=== PATIENT | male | born 1945 | race Caucasian/White ===

== ENCOUNTER 2017-11-02 17:15 | Inpatient (IN) | payer OTHER, MEDICARE ==
[2017-11-02] MEDS ORDERED: IPRATROPIUM-ALBUTEROL 3 ML NEB INHALATION STA (17:20)
[2017-11-02] MEDS ORDERED: methylPREDNISolone SOD SUCCI 125 MG/2 ML VIAL IV STA (17:20)
[2017-11-02] MEDS ORDERED: ALBUTEROL NEBULIZED 2.5 MG/3 ML INHALATION STA (17:20)
[2017-11-02 17:55] LABS: Basophils # (A) 0.1 k/uL (0-0.2); Basophils % (A) 2 %; Eosinophils % (A) 0 %; HCT 48.8 % (39.0-53.0); HGB 14.4 gm/dL (13.0-17.5); Hypochromasia Moderate; Lymphocytes # (A) 0.6 k/uL (1.0-4.8); Lymphocytes % (A) 8 %; MCH 30.5 pg (25.0-35.0); MCHC 29.5 g/dL (31.0-37.0); MCV 103.3 fL (80.0-100.0); Macrocytosis Slight; Mean Platelet Volume 7.1; Monocytes # (A) 0.4 k/uL (0-1.0); Monocytes % (A) 6 %; Neutrophils # (A) 6.2 k/uL (1.3-7.7); Neutrophils % (A) 82 %; Platelet Count 186 k/uL (150-450); RBC 4.72 m/uL (4.30-5.90); RDW 13.3 % (11.5-15.5); WBC 7.5 k/uL (3.8-10.6)
[2017-11-02 18:04] LABS: ALT 49 U/L (21-72); AST 64 U/L (17-59); Albumin 4.2 g/dL (3.5-5.0); Alkaline Phosphatase 155 U/L (38-126); Blood Urea Nitrogen 21 mg/dL (9-20); Calcium 9.4 mg/dL (8.4-10.2); Chloride 90 mmol/L (98-107); Glucose 159 mg/dL (74-99); Potassium 5.6 mmol/L (3.5-5.1); Sodium 143 mmol/L (137-145); Total Bilirubin 0.6 mg/dL (0.2-1.3); Total Protein 8.5 g/dL (6.3-8.2)
[2017-11-02 18:10] LABS: Anion Gap 8 mmol/L
[2017-11-02 18:15] LABS: Creatine Kinase MB 1.7 ng/mL (0.0-2.4); Partial Thromboplastin Time 23.2 sec (22.0-30.0); Prothrombin Time 10.1 sec (9.0-12.0); Troponin I 0.028 ng/mL (0.000-0.034)
[2017-11-02 18:16] LABS: Carbon Dioxide 45 mmol/L (22-30)
[2017-11-02 18:20] LABS: D-Dimer 1.37 mg/L FEU (<0.60)
--- NOTE | 2017-11-02 18:23 | XR ---
EXAMINATION TYPE: XR chest 1V DATE OF EXAM: 11/02/2017 COMPARISON: 06/04/2017 and 12/29/2014 HISTORY: 72-year-old male difficulty breathing, shortness of breath TECHNIQUE: Single frontal view of the chest is obtained. FINDINGS: Heart normal size. Hyperinflation with relative upper lung lucencies. Mild diffuse interstitial promi nence. There is some patchy right basilar density. Suspect external artifact rejecting at the right u pper lung. This area can be reassessed at follow-up. No significant pleural effusion seen. Limited po rtable leftward rotated exam. IMPRESSION: 1. COPD. 2. Patchy right basilar atelectasis or developing infiltrate. 3. Nodular density right upper lobe suspected external artifact. This can be reassessed at follow-up.
[2017-11-02 18:26] LABS: ABG Base Excess 18.9 mmol/L; ABG Oxygen Saturation 87.2 % (94-97); ABG PH 7.25 (7.35-7.45); ABG PO2 56 mmHg (83-108); ABG TCO2 49 mmol/L (19-24)
[2017-11-02 18:28] LABS: ABG HCO3 46 mmol/L (21-25); ABG PCO2 105 mmHg (35-45)
--- NOTE | 2017-11-02 18:31 | ED ---
SOB HPI - General Chief Complaint: Shortness of Breath Stated Complaint: MARIA L Time Seen by Provider: 11/02/17 17:20 Source: EMS Mode of arrival: EMS Limitations: no limitations - History of Present Illness Initial Comments: 72 years old male with a history of COPD by ambulance at his severe shortness of breath he is not able to even talk and he was breathing at 32 breaths per minute he was only able to nod to any questions and I see him he was using his accessory muscles and feels like he was falling asleep at that time we started on a BiPAP. Review of system was obtained from his son who also took him to the doctor's office yesterday. They [about some steroids for his COPD, his son said he also had a chest tightness and chest pain earlier in the day. Later his arrived and she said he felt cold shortly before that he had a very short span of asystole one of the RNs gave him a chest compressions and now for about a minute and then they noticed return of the pulse. The concern that he is a full code - Related Data Home Medications Medication Instructions Recorded Confirmed Benazepril [Lotensin] 5 mg PO DAILY 10/16/14 11/06/17 Metoprolol Tartrate [Lopressor] 50 mg PO BID 10/16/14 11/06/17 Nitroglycerin 0.4MG/Hr Patch 0.4 mg TRANSDERM DAILY 10/16/14 11/06/17 [Nitro-Dur 0.4MG/Hr Patch] Theophylline Anhydrous [Theochron] 200 mg PO BID 10/16/14 11/06/17 Simvastatin [Zocor] 20 mg PO HS 10/18/14 11/06/17 Omeprazole [PriLOSEC] 20 mg PO DAILY 11/10/14 11/06/17 Levothyroxine Sodium [Synthroid] 25 mcg PO DAILY 02/13/16 11/06/17 Albuterol Nebulized [Ventolin 2.5 mg INHALATION RT-Q4H PRN 11/02/17 11/06/17 Nebulized] Aspirin EC [Ecotrin Low Dose] 81 mg PO DAILY 11/02/17 11/06/17 Budesonide/Formoterol Fumarate 2 puff INHALATION RT-BID 11/02/17 11/06/17 [Symbicort 160-4.5 Mcg Inhaler] Cholecalciferol [Vitamin D3] 1,000 unit PO DAILY 11/02/17 11/06/17 Furosemide [Lasix] 20 mg PO AC-BID 11/02/17 11/06/17 Ipratropium Nebulized [Atrovent 0.5 mg INHALATION RT-Q4H PRN 11/02/17 11/06/17 Nebulized] Multivitamins, Thera [Multivitamin 1 tab PO DAILY 11/02/17 11/06/17 (formulary)] Previous Rx's Medication Instructions Recorded Phenytoin Sodium Extended 200 mg PO BID #1 cap 10/23/14 [Dilantin] Allergies Allergy/AdvReac Type Severity Reaction Status Date / Time No Known Allergies Allergy Verified 11/06/17 13:28 Review of Systems ROS Statement: Those systems with pertinent positive or pertinent negative responses have been documented in the HPI. ROS Other: All systems not noted in ROS Statement are negative. Past Medical History Past Medical History: Chest Pain / Angina, Heart Failure, COPD, Deep Vein Thrombosis (DVT), Hyperlipidemia, Hypertension, Myocardial Infarction (CT), Seizure Disorder Additional Past Medical History / Comment(s): CT 2010, SEIZURE EVERYTIME HE COUGHS (HEAVY IN 2011) Last Myocardial Infarction Date:: 2010 History of Any Multi-Drug Resistant Organisms: None Reported Past Surgical History: Heart Catheterization With Stent Additional Past Surgical History / Comment(s): 8 STENTS Past Anesthesia/Blood Transfusion Reactions: No Reported Reaction Additional Past Anesthesia/Blood Transfusion Reaction / Comment(s): NEVER HAD ONE Date of Last Stent Placement:: 2010 Past Psychological History: No Psychological Hx Reported Smoking Status: Former smoker Past Alcohol Use History: None Reported Past Drug Use History: None Reported - Past Family History Mother Family Medical History: Cancer Additional Family Medical History / Comment(s): BONE CANCER Father Family Medical History: No Reported History General Exam Limitations: no limitations Course Vital Signs 11/02/17 11/02/17 11/02/17 17:20 17:28 18:20 Temperature 98.2 F Pulse Rate 102 H 108 H Respiratory 36 H 30 H Rate Blood Pressure 176/86 O2 Sat by Pulse 85 L Oximetry 11/02/17 11/02/17 11/02/17 18:40 19:00 19:19 Temperature Pulse Rate 108 H 102 H 96 Respiratory 22 Rate Blood Pressure 141/71 O2 Sat by Pulse 96 Oximetry 0211/02/17 11/02/17 19:24 19:34 19:44 Temperature Pulse Rate 92 94 92 Respiratory 18 18 18 Rate Blood Pressure 115/58 81/47 68/42 O2 Sat by Pulse 100 98 98 Oximetry 11/02/17 11/02/17 11/02/17 19:46 19:52 19:57 Temperature Pulse Rate 90 88 88 Respiratory 18 18 18 Rate Blood Pressure 70/48 81/50 104/55 O2 Sat by Pulse 98 98 99 Oximetry 11/02/17 11/02/17 11/02/17 20:01 20:02 20:18 Temperature Pulse Rate 94 86 86 Respiratory 18 18 18 Rate Blood Pressure 77/47 96/55 105/60 O2 Sat by Pulse 98 100 99 Oximetry 11/02/17 11/02/17 11/02/17 20:25 20:35 20:45 Temperature Pulse Rate 84 92 93 Respiratory 18 18 22 Rate Blood Pressure 112/65 116/64 93/58 O2 Sat by Pulse 100 98 99 Oximetry 11/02/17 11/02/17 11/02/17 20:55 21:02 21:07 Temperature Pulse Rate 88 88 88 Respiratory 22 22 22 Rate Blood Pressure 93/61 113/63 112/65 O2 Sat by Pulse 98 97 96 Oximetry 11/02/17 11/02/17 11/02/17 21:12 21:22 21:27 Temperature Pulse Rate 90 88 88 Respiratory 22 22 22 Rate Blood Pressure 114/67 111/65 116/69 O2 Sat by Pulse 99 95 99 Oximetry 11/02/17 11/02/17 11/02/17 21:32 21:42 21:52 Temperature Pulse Rate 81 90 91 Respiratory 22 22 22 Rate Blood Pressure 174/76 118/60 111/63 O2 Sat by Pulse 95 98 99 Oximetry 11/02/17 11/02/17 11/02/17 22:02 22:11 22:17 Temperature Pulse Rate 96 104 H 92 Respiratory 18 22 22 Rate Blood Pressure 116/69 121/105 111/60 O2 Sat by Pulse 97 94 L 99 Oximetry 11/02/17 11/02/17 11/02/17 22:27 22:37 22:47 Temperature Pulse Rate 92 92 90 Respiratory 22 22 22 Rate Blood Pressure 116/61 119/65 115/65 O2 Sat by Pulse 100 98 99 Oximetry 11/02/17 11/02/1718 22:57 23:22 23:32 Temperature Pulse Rate 90 92 99 Respiratory 22 22 22 Rate Blood Pressure 104/58 109/64 113/64 O2 Sat by Pulse 98 98 99 Oximetry 11/02/17 11/02/17 11/02/17 23:42 23:47 23:57 Temperature Pulse Rate 94 94 92 Respiratory 22 22 22 Rate Blood Pressure 90/51 87/54 91/54 O2 Sat by Pulse 98 97 97 Oximetry 11/03/17 11/03/17 11/03/17 00:02 00:12 00:22 Temperature Pulse Rate 92 90 92 Respiratory 22 22 22 Rate Blood Pressure 95/55 111/66 115/67 O2 Sat by Pulse 97 99 99 Oximetry 11/03/17 11/03/17 11/03/17 00:53 01:38 02:09 Temperature Pulse Rate 92 92 93 Respiratory 22 22 22 Rate Blood Pressure 103/65 91/56 102/65 O2 Sat by Pulse 100 98 98 Oximetry 11/03/17 11/03/17 11/03/17 02:23 02:53 03:23 Temperature Pulse Rate 90 94 92 Respiratory 22 22 22 Rate Blood Pressure 96/61 96/51 103/63 O2 Sat by Pulse 98 98 98 Oximetry 11/03/17 11/03/17 11/03/17 03:53 04:23 04:53 Temperature Pulse Rate 90 88 94 Respiratory 22 22 22 Rate Blood Pressure 101/64 111/75 117/75 O2 Sat by Pulse 98 95 99 Oximetry 11/03/17 11/03/17 11/03/17 05:23 05:42 06:43 Temperature 97.9 F Pulse Rate 95 94 90 Respiratory 22 22 22 Rate Blood Pressure 118/72 105/63 117/73 O2 Sat by Pulse 100 99 100 Oximetry 11/03/17 11/03/17 11/03/17 07:55 08:50 09:00 Temperature Pulse Rate 89 98 96 Respiratory 16 16 Rate Blood Pressure 117/72 122/73 O2 Sat by Pulse 99 100 Oximetry 11/03/17 11/03/17 11/03/17 10:00 11:00 12:00 Temperature Pulse Rate 92 95 94 Respiratory 16 18 16 Rate Blood Pressure 111/66 110/74 114/65 O2 Sat by Pulse 99 98 98 Oximetry 11/03/17 11/03/17 11/03/17 12:01 12:13 14:02 Temperature Pulse Rate 94 97 109 H Respiratory 16 Rate Blood Pressure 165/77 O2 Sat by Pulse 100 Oximetry 11/03/17 14:24 Temperature 98.7 F Pulse Rate 118 H Respiratory 22 Rate Blood Pressure 143/81 O2 Sat by Pulse 98 Oximetry EKG is a sinus tachycardia with occasional premature ventricular complexes OR interval is 192 with ventricular rate is 1 of 4 QRS duration is 116 QT/QTc is 334/439 review of this EKG reveals T-wave inversion in lead [address] Bailey he agrees with the ICU admission and Dr. Ruiz pcp, on arrival patient was started on a BiPAP, he felt a BiPAP in spite of being on a BiPAP half an hour he is here today was 105 is not intubated confirmation was done with the bilateral auscultation and CO2 detector get better Procedures - Intubation Time Out Performed: Yes Sedative: Etomidate Paralytic: Succinylcholine Laryngoscope: fiber optic video scope Assist Device Used: fiber optic device ET Tube Size: 8 ET Tube Uncuffed: Yes Tube Secured Depth (cm): 22 Tube Secured Location: lips Tube Placement Confirmation: visualized tube passing through cords Patient Tolerated Procedure: well Intubation Complications: none Medical Decision Making - Lab Data Result diagrams: 11/03/17 05:23 11/03/17 05:23 Lab Results 11/02/17 11/02/17 11/02/17 Range/Units 17:34 17:34 17:34 WBC 7.5 (3.8-10.6) k/uL RBC 4.72 (4.30-5.90) m/uL Hgb 14.4 (13.0-17.5) gm/dL Hct 48.8 (39.0-53.0) % MCV 103.3 H (80.0-100.0) fL MCH 30.5 (25.0-35.0) pg MCHC 29.5 L (31.0-37.0) g/dL RDW 13.3 (11.5-15.5) % Plt Count 186 (150-450) k/uL Neutrophils % 82 % Lymphocytes % 8 % Monocytes % 6 % Eosinophils % 0 % Basophils % 2 % Neutrophils # 6.2 (1.3-7.7) k/uL Lymphocytes # 0.6 L (1.0-4.8) k/uL Monocytes # 0.4 (0-1.0) k/uL Eosinophils # 0.0 (0-0.7) k/uL Basophils # 0.1 (0-0.2) k/uL Hypochromasia Moderate Macrocytosis Slight PT (9.0-12.0) sec INR (<1.2) APTT (22.0-30.0) sec D-Dimer (<0.60) mg/L FEU Sample Site ABG pH (7.35-7.45) ABG pCO2 (35-45) mmHg ABG pO2 (83-108) mmHg ABG HCO3 (21-25) mmol/L ABG Total CO2 (19-24) mmol/L ABG O2 Saturation (94-97) % ABG Base Excess mmol/L Baltazar Test FiO2 % Sodium 143 (137-145) mmol/L Potassium 5.6 H (3.5-5.1) mmol/L Chloride 90 L (98-107) mmol/L Carbon Dioxide 45 H* (22-30) mmol/L Anion Gap 8 mmol/L BUN 21 H (9-20) mg/dL Creatinine 0.70 (0.66-1.25) mg/dL Est GFR (MDRD) Af Amer >60 (>60 ml/min/1.73 sqM) Est GFR (MDRD) Non-Af >60 (>60 ml/min/1.73 sqM) Glucose 159 H (74-99) mg/dL Calcium 9.4 (8.4-10.2) mg/dL Total Bilirubin 0.6 (0.2-1.3) mg/dL AST 64 H (17-59) U/L ALT 49 (21-72) U/L Alkaline Phosphatase 155 H (38-126) U/L Total Creatine Kinase 180 H (55-170) U/L CK-MB (CK-2) 1.7 (0.0-2.4) ng/mL CK-MB (CK-2) Rel Index 0.9 Troponin I 0.028 (0.000-0.034) ng/mL Total Protein 8.5 H (6.3-8.2) g/dL Albumin 4.2 (3.5-5.0) g/dL 02/17/18 02/17/18 02/17/18 Range/Units 17:34 18:18 20:21 WBC (3.8-10.6) k/uL RBC (4.30-5.90) m/uL Hgb (13.0-17.5) gm/dL Hct (39.0-53.0) % MCV (80.0-100.0) fL MCH (25.0-35.0) pg MCHC (31.0-37.0) g/dL RDW (11.5-15.5) % Plt Count (150-450) k/uL Neutrophils % % Lymphocytes % % Monocytes % % Eosinophils % % Basophils % % Neutrophils # (1.3-7.7) k/uL Lymphocytes # (1.0-4.8) k/uL Monocytes # (0-1.0) k/uL Eosinophils # (0-0.7) k/uL Basophils # (0-0.2) k/uL Hypochromasia Macrocytosis PT 10.1 (9.0-12.0) sec INR 1.0 (<1.2) APTT 23.2 (22.0-30.0) sec D-Dimer 1.37 H (<0.60) mg/L FEU Sample Site right radial right brachial ABG pH 7.25 L 7.30 L (7.35-7.45) ABG pCO2 105 H* 83 H* (35-45) mmHg ABG pO2 56 L 346 H (83-108) mmHg ABG HCO3 46 H* 41 H* (21-25) mmol/L ABG Total CO2 49 H 44 H (19-24) mmol/L ABG O2 Saturation 87.2 L 99.8 H (94-97) % ABG Base Excess 18.9 14.8 mmol/L Baltazar Test Yes Yes FiO2 40 100 % Sodium (137-145) mmol/L Potassium (3.5-5.1) mmol/L Chloride (98-107) mmol/L Carbon Dioxide (22-30) mmol/L Anion Gap mmol/L BUN (9-20) mg/dL Creatinine (0.66-1.25) mg/dL Est GFR (MDRD) Af Amer (>60 ml/min/1.73 sqM) Est GFR (MDRD) Non-Af (>60 ml/min/1.73 sqM) Glucose (74-99) mg/dL Calcium (8.4-10.2) mg/dL Total Bilirubin (0.2-1.3) mg/dL AST (17-59) U/L ALT (21-72) U/L Alkaline Phosphatase (38-126) U/L Total Creatine Kinase (55-170) U/L CK-MB (CK-2) (0.0-2.4) ng/mL CK-MB (CK-2) Rel Index Troponin I (0.000-0.034) ng/mL Total Protein (6.3-8.2) g/dL Albumin (3.5-5.0) g/dL Critical Care Time Total Critical Care Time: 60 Critical Care Time: On arrival patient's respiratory rate was greater than 35 he was using accessory muscles patient was seen him before he was registered be started on a BiPAP he was on a BiPAP for a half an hour after that we did the blood gases it shows pCO2 of 105 and pH of 7.25 CBC is normal range d-dimer is elevated potassium is 5.4 troponin is negative EKG didn't show any STEMI, this was discussed with the Dr. Woods or and he agreed with my suggestion to go ahead and intubate the patient Disposition Clinical Impression: Respiratory failure, Pneumonia Clinical Impression: (Ruled Out): Respiration abnormal Disposition: ADMITTED IP TO THIS HOSP
[2017-11-02] MEDS: MIDAZOLAM (PF) 1 MG/ML 5 ML VIAL IV STA ×2 (19:08→19:26)
[2017-11-02] MEDS ORDERED: PIPERACILLIN-TAZOBACTAM 3.375 GM in DEXTROSE/WATER 1 50ML.BAG IVPB STA (19:17)
[2017-11-02] MEDS ORDERED: LEVOFLOXACIN 500MG-D5W PMX 500 MG in DEXTROSE/WATER 1 100ML.BAG IVPB STA (19:18)
[2017-11-02] MEDS ORDERED: SUCCINYLCHOLINE CHLORIDE VIAL 200 MG/10 ML VIAL IV STA (19:18)
[2017-11-02] MEDS ORDERED: ETOMIDATE 2 MG/ML 10 ML VIAL IVP STA (19:18)
--- NOTE | 2017-11-02 19:30 | XR ---
EXAMINATION TYPE: XR chest 1V DATE OF EXAM: 11/02/2017 COMPARISON: Earlier today HISTORY: 72-year-old male tube placement TECHNIQUE: Single frontal view of the chest is obtained. FINDINGS: ET tube tip is high just above the level of the medial clavicular heads. It could be advanced by 4 cm and reassessed at follow-up. Heart remains normal size. Diffuse interstitial prominence and hyperinflation similar. Some patchy ri ght basilar density is similar. Previous nodule in the right upper lobe has resolved compatible with external artifact. No new consolidation or pleural effusion. IMPRESSION: 1. High positioning of the ET tube. Tip is above the level of the clavicular heads. Advance by 4 cm a nd reassess at follow-up. 2. COPD and some patchy right basilar density, similar to prior. Developing infiltrate or atypical pu lmonary edema are possibilities.
[2017-11-02] MEDS ORDERED: PROPOFOL 1,000 MG in EMPTY BAG 1 BAG IV ONE (19:32)
[2017-11-02 20:24] LABS: ABG Base Excess 14.8 mmol/L; ABG Oxygen Saturation 99.8 % (94-97); ABG PO2 346 mmHg (83-108); ABG TCO2 44 mmol/L (19-24)
[2017-11-02] MEDS ORDERED: RX INFO: IV CONTRAST WAS GIVEN 1 EACH MISC MISCELLANE PRN (20:26)
[2017-11-02 20:30] LABS: ABG HCO3 41 mmol/L (21-25); ABG PCO2 83 mmHg (35-45)
[2017-11-02] MEDS: PROPOFOL 1,000 MG in EMPTY BAG 1 BAG IV STA (20:45)
[2017-11-02] MEDS ORDERED: NALOXONE 0.4 MG/ML 1 ML VIAL IV PRN (21:19)
[2017-11-02] MEDS ORDERED: MORPHINE SULFATE 4 MG/ML SYRINGE IV PRN (21:19)
[2017-11-02] MEDS ORDERED: ALBUTEROL NEBULIZED 2.5 MG/3 ML INHALATION PRN (21:34)
--- NOTE | 2017-11-02 22:36 | CT ---
EXAMINATION TYPE: CT chest angio for PE DATE OF EXAM: 11/02/2017 COMPARISON: 01/09/2016 HISTORY: r/o PE CT DLP: 478 mGycm Automated exposure control for dose reduction was used. CONTRAST: CT Chest for pulmonary embolism performed with with IV Contrast, patient injected with 90 mL of Omnip aque 350. FINDINGS: There are 3-D post processed images. Endotracheal tube is present. There is narrowing of the lower tr achea and the left and right mainstem bronchi. There is diffuse moderately severe bullous emphysema. There is no evidence of a pulmonary mass. There is reticular linear density in both lung roca consi stent with scarring and focal atelectasis. Heart size is normal. There is no pericardial effusion. There is a 1.5 cm pretracheal lymph node. There is a right bronchial lymph node that measures 1.2 cm. I see no filling defects in the pulmonary arteries. Nasogastric tube is present. There is no evidence of aortic aneurysm or dissection. IMPRESSION: No evidence of pulmonary embolism. Severe bullous emphysema. Pulmonary fibrotic changes and atelectas is. There is lower tracheal stenosis and some stenosis also in the left and right mainstem bronchi that i s new compared to the old CT scan. Nonspecific mild adenopathy. This appears not significantly differ ent than old exam.
[2017-11-03] MEDS: PROPOFOL 1,000 MG in EMPTY BAG 1 BAG IV STA (05:39)
[2017-11-03 05:59] LABS: ALT 40 U/L (21-72); AST 49 U/L (17-59); Albumin 3.2 g/dL (3.5-5.0); Alkaline Phosphatase 122 U/L (38-126); Anion Gap 8 mmol/L; Blood Urea Nitrogen 24 mg/dL (9-20); Calcium 8.5 mg/dL (8.4-10.2); Carbon Dioxide 37 mmol/L (22-30); Chloride 96 mmol/L (98-107); Glucose 106 mg/dL (74-99); Potassium 4.2 mmol/L (3.5-5.1); Sodium 141 mmol/L (137-145); Total Bilirubin 0.5 mg/dL (0.2-1.3); Total Protein 6.6 g/dL (6.3-8.2)
[2017-11-03 06:25] LABS: Basophils % (A) 0 %; Eosinophils % (A) 0 %; HCT 43.9 % (39.0-53.0); Hypochromasia Moderate; Lymphocytes # (A) 1.1 k/uL (1.0-4.8); Lymphocytes % (A) 13 %; MCH 30.6 pg (25.0-35.0); MCHC 29.7 g/dL (31.0-37.0); MCV 103.2 fL (80.0-100.0); Macrocytosis Slight; Mean Platelet Volume 7.4; Monocytes # (A) 0.8 k/uL (0-1.0); Monocytes % (A) 10 %; Neutrophils % (A) 73 %; Platelet Count 156 k/uL (150-450); RBC 4.26 m/uL (4.30-5.90); RDW 13.3 % (11.5-15.5); WBC 8.1 k/uL (3.8-10.6)
[2017-11-03] MEDS: LEVOTHYROXINE 25 MCG TAB PO SCH (07:12)
[2017-11-03] MEDS ORDERED: BUDESONIDE 0.5 MG/2 ML NEBU INHALATION SCH (08:00)
[2017-11-03] MEDS ORDERED: SYMBICORT 160-4.5 MCG INHALER INHALATION SCH (08:00)
[2017-11-03] MEDS: CHOLECALCIFEROL 1,000 UNIT TAB PO SCH (08:24)
[2017-11-03] MEDS: FUROSEMIDE 20 MG TAB PO SCH ×2 (08:24→17:22)
[2017-11-03] MEDS: ASPIRIN 81 MG PO SCH (08:24)
[2017-11-03] MEDS: LISINOPRIL 5 MG TAB PO SCH (08:24)
[2017-11-03] MEDS: THEOPHYLLINE 80 MG/15 ML PO SCH ×2 (08:25→22:56)
[2017-11-03] MEDS: PHENYTOIN SODIUM EXTENDED 100 MG CAP PO SCH ×2 (08:25→22:17)
[2017-11-03] MEDS: PANTOPRAZOLE 40 MG/10 ML VIAL IV SCH (08:25)
[2017-11-03] MEDS: METOPROLOL TARTRATE 50 MG TAB PO SCH ×2 (08:25→22:18)
[2017-11-03] MEDS: NITROGLYCERIN 0.4MG/HR PATCH TRANSDERM SCH (08:25)
[2017-11-03] MEDS: PIPERACILLIN-TAZOBACTAM 3.375 GM in DEXTROSE/WATER 1 50ML.BAG IVPB SCH ×3 (08:31→23:44)
[2017-11-03 08:44] LABS: ABG Base Excess 11.7 mmol/L; ABG HCO3 36 mmol/L (21-25); ABG PCO2 52 mmHg (35-45); ABG PH 7.45 (7.35-7.45); ABG PO2 147 mmHg (83-108); ABG TCO2 37 mmol/L (19-24)
[2017-11-03 08:47] LABS: ABG Oxygen Saturation 99.5 % (94-97)
[2017-11-03] MEDS: IPRATROPIUM-ALBUTEROL 3 ML NEB INHALATION PRN ×2 (08:58→12:00)
[2017-11-03] MEDS ORDERED: NON-FORMULARY DRUG (Omeprazole 20 MG) PO SCH (09:00)
[2017-11-03] MEDS: MULTIVITAMINS, THERA 1 EACH TAB PO SCH (11:47)
[2017-11-03] MEDS ORDERED: MORPHINE SULFATE (100 MG/2 ML) 100 MG in SODIUM CHLORIDE 0.9% 100 ML IV SCH (13:00)
[2017-11-03] MEDS: MORPHINE SULFATE (100 MG/2 ML) 100 MG in SODIUM CHLORIDE 0.9% 100 ML IV SCH (13:28)
[2017-11-03] MEDS: SODIUM CHLORIDE 0.9% 1,000 ML IV SCH (13:31)
[2017-11-03] MEDS: ENOXAPARIN 40 MG/0.4 ML SYRINGE SQ SCH (14:03)
[2017-11-03] MEDS: methylPREDNISolone SOD SUCCI 125 MG/2 ML VIAL IV SCH ×3 (14:21→22:56)
[2017-11-03 15:06] VITALS: BMI 34.0
--- NOTE | 2017-11-03 15:59 | P.CNPUL ---
History of Present Illness Consult date: 11/03/17 Requesting physician: Justin Ruiz Reason for consult: COPD Chief complaint: Shortness of breath History of present illness: This is a 72-year-old white male with history of severe end-stage COPD, O2 dependent, prednisone dependent, his COPD is mostly related to severe emphysema. Patient normally sees a pulmonary physician at the [facility], and I have seen the patient last about 6 months ago, and at the time he came in for O2 certification, and he qualified for that easily. Patient was advised to remain on home O2 at the time, advised to continue his bronchodilators, and to remain on prednisone. This was back in May of 2017. And the patient has not been seen since. According to the family he has been experiencing shortness of breath with any activity, and shortness of breath has become much worse. Patient was brought into the ER last night with severe shortness of breath, and he was unable to talk, he was tachypneic, tachycardic, and he was getting more lethargic and obtunded. He was falling asleep easily upon arrival to the ER. Placed on BiPAP, but considering his mental status was getting worse , and his pCO2 was significantly elevated just over 100, patient was intubated, placed on mechanical ventilation, and I was asked to see him on consultation. I saw him this morning, I reviewed his CT of the chest, reviewed all the workup done by the ER physician, reviewed by notes from the office and his previous meds, discussed with his family at bedside his condition, and the family is seriously considering comfort care measures at the time. His son and daughter seem to be very agreeable to comfort care measures, and they will discuss this with the . was not present at the time of my evaluation. His ventilator settings were adjusted. I cut down his stomach volume to 400, His rate at 22, and adjust his flow rates. CT of the chest was reviewed it showed mostly severe bullous emphysema and some fibrotic changes/nonspecific. But the emphysematous changes in both lungs were quite impressive. Review of Systems 14 point review of systems were obtained from the family at bedside, please refer to pertinent positives in HPI, otherwise remaining systems are negative. According to the family the patient has been complaining mostly of worsening shortness of breath with any activity, intermittent cough wheezing, and at times the chest tightness. Past Medical History Past Medical History: Chest Pain / Angina, Heart Failure, COPD, Deep Vein Thrombosis (DVT), Hyperlipidemia, Hypertension, Myocardial Infarction (CA), Seizure Disorder Additional Past Medical History / Comment(s): CA 2010, SEIZURE EVERYTIME HE COUGHS (HEAVY IN 2011) Last Myocardial Infarction Date:: 2010 History of Any Multi-Drug Resistant Organisms: None Reported Past Surgical History: Heart Catheterization With Stent Additional Past Surgical History / Comment(s): 8 STENTS Past Anesthesia/Blood Transfusion Reactions: No Reported Reaction Additional Past Anesthesia/Blood Transfusion Reaction / Comment(s): NEVER HAD ONE Date of Last Stent Placement:: 2010 Past Psychological History: No Psychological Hx Reported Smoking Status: Former smoker Past Alcohol Use History: None Reported Past Drug Use History: None Reported - Past Family History Mother Family Medical History: Cancer Additional Family Medical History / Comment(s): BONE CANCER Father Family Medical History: No Reported History Medications and Allergies Home Medications Medication Instructions Recorded Confirmed Type Benazepril [Lotensin] 5 mg PO DAILY 10/16/14 11/02/17 History Metoprolol Tartrate [Lopressor] 50 mg PO BID 10/16/14 11/02/17 History Nitroglycerin 0.4MG/Hr Patch 0.4 mg TRANSDERM DAILY 10/16/14 11/02/17 History [Nitro-Dur 0.4MG/Hr Patch] Theophylline Anhydrous [Theochron] 200 mg PO BID 10/16/14 11/02/17 History Simvastatin [Zocor] 20 mg PO HS 10/18/14 11/02/17 History Phenytoin Sodium Extended 200 mg PO BID #1 cap 10/23/14 11/02/17 Rx [Dilantin] Omeprazole [PriLOSEC] 20 mg PO DAILY 11/10/14 11/02/17 History Levothyroxine Sodium [Synthroid] 25 mcg PO DAILY 02/13/16 11/02/17 History Albuterol Nebulized [Ventolin 2.5 mg INHALATION RT-Q4H PRN 11/02/17 11/02/17 History Nebulized] Aspirin EC [Ecotrin Low Dose] 81 mg PO DAILY 11/02/17 11/02/17 History Budesonide/Formoterol Fumarate 2 puff INHALATION RT-BID 11/02/17 11/02/17 History [Symbicort 160-4.5 Mcg Inhaler] Cholecalciferol [Vitamin D3] 1,000 unit PO DAILY 11/02/17 11/02/17 History Furosemide [Lasix] 20 mg PO AC-BID 11/02/17 11/02/17 History Ipratropium Nebulized [Atrovent 0.5 mg INHALATION RT-Q4H PRN 11/02/17 11/02/17 History Nebulized] Multivitamins, Thera [Multivitamin 1 tab PO DAILY 11/02/17 11/02/17 History (formulary)] Allergies Allergy/AdvReac Type Severity Reaction Status Date / Time No Known Allergies Allergy Verified 11/02/17 17:51 Physical Exam Vitals: Vital Signs Temp Pulse Resp BP Pulse Ox 11/03/17 14:24 98.7 F 118 H 22 143/81 98 11/03/17 14:02 109 H 16 165/77 100 11/03/17 12:13 97 11/03/17 12:01 94 11/03/17 12:00 94 16 114/65 98 11/03/17 11:00 95 18 110/74 98 11/03/17 10:00 92 16 111/66 99 11/03/17 09:00 96 16 122/73 100 11/03/17 08:50 98 11/03/17 07:55 89 16 117/72 99 11/03/17 06:43 97.9 F 90 22 117/73 100 11/03/17 05:42 94 22 105/63 99 11/03/17 05:23 95 22 118/72 100 11/03/17 04:53 94 22 117/75 99 11/03/17 04:23 88 22 111/75 95 11/03/17 03:53 90 22 101/64 98 11/03/17 03:23 92 22 103/63 98 11/03/17 02:53 94 22 96/51 98 11/03/17 02:23 90 22 96/61 98 11/03/17 02:09 93 22 102/65 98 11/03/17 01:38 92 22 91/56 98 11/03/17 00:53 92 22 103/65 100 11/03/17 00:22 92 22 115/67 99 11/03/17 00:12 90 22 111/66 99 11/03/17 00:02 92 22 95/55 97 02/17/18 23:57 92 22 91/54 97 02/17/18 23:47 94 22 87/54 97 02/17/18 23:42 94 22 90/51 98 02/17/18 23:32 99 22 113/64 99 02/17/18 23:22 92 22 109/64 98 02/17/18 22:57 90 22 104/58 98 02/17/18 22:47 90 22 115/65 99 02/17/18 22:37 92 22 119/65 98 02/17/18 22:27 92 22 116/61 100 02/17/18 22:17 92 22 111/60 99 02/17/18 22:11 104 H 22 121/105 94 L 02/17/18 22:02 96 18 116/69 97 02/17/18 21:52 91 22 111/63 99 02/17/18 21:42 90 22 118/60 98 02/17/18 21:32 81 22 174/76 95 02/17/18 21:27 88 22 116/69 99 02/17/18 21:22 88 22 111/65 95 02/17/18 21:12 90 22 114/67 99 02/17/18 21:07 88 22 112/65 96 02/17/18 21:02 88 22 113/63 97 02/17/18 20:55 88 22 93/61 98 02/17/18 20:45 93 22 93/58 99 02/17/18 20:35 92 18 116/64 98 02/17/18 20:25 84 18 112/65 100 02/17/18 20:18 86 18 105/60 99 02/17/18 20:02 86 18 96/55 100 02/17/18 20:01 94 18 77/47 98 02/17/18 19:57 88 18 104/55 99 02/17/18 19:52 88 18 81/50 98 02/17/18 19:46 90 18 70/48 98 02/17/18 19:44 92 18 68/42 98 02/17/18 19:34 94 18 81/47 98 02/17/18 19:24 92 18 115/58 100 02/17/18 19:19 96 22 141/71 96 02/17/18 19:00 102 H 02/17/18 18:40 108 H 02/17/18 18:20 108 H 02/17/18 17:28 98.2 F 102 H 30 H 176/86 85 L 11/02/17 17:20 36 H Intake and Output 11/03/17 11/03/17 11/03/17 06:59 14:59 22:59 Intake Total 90.20 Balance 90.20 Intake: Intake, IV Titration 90.20 Amount Propofol 1,000 mg In 90.20 Empty Bag 1 bag @ Titrate IV .Q0M STA Rx#: [id number] Other: Voiding Method Indwelling Catheter Weight 104.326 kg Patient Weight 11/04/17 06:59 Weight 104.326 kg Physical Exam: Revealed a 72-year-old white male, cushingoid, sedated, intubated , on mechanical ventilation, in no distress presently on propofol drip. Head: Cushingoid, atraumatic, normocephalic. HEENT:[Neck is supple.] [No neck masses.] [No thyromegaly.] [No JVD.] Endotracheal tube and orogastric tube were noted to be intact. Chest: Diminished breath sound bilaterally, no crackles, no rhonchi, no wheezes..] Cardiac Exam: [Distant S1 and S2, no S3 gallop, no murmur.] Abdomen: [Obese, Soft, nontender, no megaly, no rebound, no guarding, normal bowel sounds.] Extremities: [No clubbing, no edema, no cyanosis.] Neurological Exam: Cannot be assessed, patient is heavily sedated on propofol. Psychiatric: Cannot be assessed Musculoskeletal: Cannot be assessed. Results - Laboratory Findings CBC and BMP: 11/03/17 05:23 11/03/17 05:23 ABG ABG pH 7.45 (7.35-7.45) 11/03/17 08:38 ABG pCO2 52 mmHg (35-45) H 11/03/17 08:38 ABG pO2 147 mmHg (83-108) H 11/03/17 08:38 ABG O2 Saturation 99.5 % (94-97) H 11/03/17 08:38 PT/INR, D-dimer PT 10.1 sec (9.0-12.0) 11/02/17 17:34 INR 1.0 (<1.2) 11/02/17 17:34 D-Dimer 1.37 mg/L FEU (<0.60) H 11/02/17 17:34 Abnormal lab findings: Abnormal Labs 11/02/1718 11/02/17 17:34 17:34 17:34 RBC MCV 103.3 H MCHC 29.5 L Lymphocytes # 0.6 L D-Dimer ABG pH ABG pCO2 ABG pO2 ABG HCO3 ABG Total CO2 ABG O2 Saturation Potassium 5.6 H Chloride 90 L Carbon Dioxide 45 H* BUN 21 H Glucose 159 H AST 64 H Alkaline Phosphatase 155 H Total Creatine Kinase 180 H Total Protein 8.5 H Albumin 11/02/1718 18 17:34 18:18 20:21 RBC MCV MCHC Lymphocytes # D-Dimer 1.37 H ABG pH 7.25 L 7.30 L ABG pCO2 105 H* 83 H* ABG pO2 56 L 346 H ABG HCO3 46 H* 41 H* ABG Total CO2 49 H 44 H ABG O2 Saturation 87.2 L 99.8 H Potassium Chloride Carbon Dioxide BUN Glucose AST Alkaline Phosphatase Total Creatine Kinase Total Protein Albumin 11/03/17 11/03/17 11/03/17 05:23 05:23 08:38 RBC 4.26 L MCV 103.2 H MCHC 29.7 L Lymphocytes # D-Dimer ABG pH ABG pCO2 52 H ABG pO2 147 H ABG HCO3 36 H ABG Total CO2 37 H ABG O2 Saturation 99.5 H Potassium Chloride 96 L Carbon Dioxide 37 H BUN 24 H Glucose 106 H AST Alkaline Phosphatase Total Creatine Kinase Total Protein Albumin 3.2 L - Diagnostic Findings Chest x-ray: image reviewed (CT of the chest was reviewed chest x-ray was also reviewed please refer to my notes above.) Assessment and Plan Assessment: Acute hypoxic and hypercapnic respiratory failure secondary to severe end-stage COPD, emphysema. History of multiple comorbidities including deep vein thrombosis, hyperlipidemia , hypertension, coronary artery disease and previous CA, and history of seizure disorder. Recommendation: I agree with the present treatment plan, agree with bronchodilators, antibiotics, steroids, I discussed with the family his overall clinical condition, family seems to be inclined to consider terminal weaning and comfort care measures. If not, the patient will be transferred to the ICU, and we'll continue to follow. Orders were placed on the chart. Critical care time is 45 minutes
[2017-11-03 20:09] LABS: Hemoglobin A1C 6.2 % (4.0-6.0)
[2017-11-03] MEDS: ATORVASTATIN 10 MG TAB PO SCH (22:17)
--- NOTE | 2017-11-04 00:35 | P.HPIM ---
History of Present Illness H&P Date: 11/03/17 Chief Complaint: Shortness of breath Patient is a 72-year-old male with a known history of end-stage COPD oxygen and steroid dependent, history of DVT, hypertension hyperlipidemia and coronary artery disease with multiple stent placement came to ER with complaints of worsening shortness of breath. Patient was brought into the ER last night with severe shortness of breath, and he was unable to talk, he was tachypneic, tachycardic, and he was getting more lethargic and obtunded. He was falling asleep easily upon arrival to the ER. Placed on BiPAP, but considering his mental status was getting worse, and his pCO2 was significantly elevated just over 100, patient was intubated, placed on mechanical ventilation. CT of the chestshowed mostly severe bullous emphysema and some fibrotic changes/ nonspecific. family considering comfort care measures at the time. His son and daughter seem to be very agreeable to comfort care measures and they discussed with his . Currently patient is extubated and is maintained on nasal cannula. Currently patient is awake and alert but could not provide any history. Review of Systems Complete review of systems could not be obtained from the patient Past Medical History Past Medical History: Chest Pain / Angina, Heart Failure, COPD, Deep Vein Thrombosis (DVT), Hyperlipidemia, Hypertension, Myocardial Infarction (NM), Seizure Disorder Additional Past Medical History / Comment(s): NM 2010, SEIZURE EVERYTIME HE COUGHS (HEAVY IN 2011) Last Myocardial Infarction Date:: 2010 History of Any Multi-Drug Resistant Organisms: None Reported Past Surgical History: Heart Catheterization With Stent Additional Past Surgical History / Comment(s): 8 STENTS Past Anesthesia/Blood Transfusion Reactions: No Reported Reaction Additional Past Anesthesia/Blood Transfusion Reaction / Comment(s): NEVER HAD ONE Date of Last Stent Placement:: 2010 Past Psychological History: No Psychological Hx Reported Smoking Status: Former smoker Past Alcohol Use History: None Reported Past Drug Use History: None Reported - Past Family History Mother Family Medical History: Cancer Additional Family Medical History / Comment(s): BONE CANCER Father Family Medical History: No Reported History Medications and Allergies Home Medications Medication Instructions Recorded Confirmed Type Benazepril [Lotensin] 5 mg PO DAILY 10/16/14 11/02/17 History Metoprolol Tartrate [Lopressor] 50 mg PO BID 10/16/14 11/02/17 History Nitroglycerin 0.4MG/Hr Patch 0.4 mg TRANSDERM DAILY 10/16/14 11/02/17 History [Nitro-Dur 0.4MG/Hr Patch] Theophylline Anhydrous [Theochron] 200 mg PO BID 10/16/14 11/02/17 History Simvastatin [Zocor] 20 mg PO HS 10/18/14 11/02/17 History Phenytoin Sodium Extended 200 mg PO BID #1 cap 10/23/14 11/02/17 Rx [Dilantin] Omeprazole [PriLOSEC] 20 mg PO DAILY 11/10/14 11/02/17 History Levothyroxine Sodium [Synthroid] 25 mcg PO DAILY 02/13/16 11/02/17 History Albuterol Nebulized [Ventolin 2.5 mg INHALATION RT-Q4H PRN 11/02/17 11/02/17 History Nebulized] Aspirin EC [Ecotrin Low Dose] 81 mg PO DAILY 11/02/17 11/02/17 History Budesonide/Formoterol Fumarate 2 puff INHALATION RT-BID 11/02/17 11/02/17 History [Symbicort 160-4.5 Mcg Inhaler] Cholecalciferol [Vitamin D3] 1,000 unit PO DAILY 11/02/17 11/02/17 History Furosemide [Lasix] 20 mg PO AC-BID 11/02/17 11/02/17 History Ipratropium Nebulized [Atrovent 0.5 mg INHALATION RT-Q4H PRN 11/02/17 11/02/17 History Nebulized] Multivitamins, Thera [Multivitamin 1 tab PO DAILY 11/02/17 11/02/17 History (formulary)] Allergies Allergy/AdvReac Type Severity Reaction Status Date / Time No Known Allergies Allergy Verified 11/02/17 17:51 Physical Exam Vitals: Vital Signs Temp Pulse Resp BP Pulse Ox 11/03/17 14:02 109 H 16 165/77 100 11/03/17 12:13 97 11/03/17 12:01 94 11/03/17 12:00 94 16 114/65 98 11/03/17 11:00 95 18 110/74 98 11/03/17 10:00 92 16 111/66 99 11/03/17 09:00 96 16 122/73 100 02/18/18 08:50 98 02/18/18 07:55 89 16 117/72 99 02/18/18 06:43 97.9 F 90 22 117/73 100 02/18/18 05:42 94 22 105/63 99 02/18/18 05:23 95 22 118/72 100 02/18/18 04:53 94 22 117/75 99 02/18/18 04:23 88 22 111/75 95 02/18/18 03:53 90 22 101/64 98 02/18/18 03:23 92 22 103/63 98 02/18/18 02:53 94 22 96/51 98 02/18/18 02:23 90 22 96/61 98 02/18/18 02:09 93 22 102/65 98 02/18/18 01:38 92 22 91/56 98 02/18/18 00:53 92 22 103/65 100 02/18/18 00:22 92 22 115/67 99 02/18/18 00:12 90 22 111/66 99 02/18/18 00:02 92 22 95/55 97 02/17/18 23:57 92 22 91/54 97 02/17/18 23:47 94 22 87/54 97 02/17/18 23:42 94 22 90/51 98 02/17/18 23:32 99 22 113/64 99 02/17/18 23:22 92 22 109/64 98 02/17/18 22:57 90 22 104/58 98 02/17/18 22:47 90 22 115/65 99 02/17/18 22:37 92 22 119/65 98 02/17/18 22:27 92 22 116/61 100 02/17/18 22:17 92 22 111/60 99 02/17/18 22:11 104 H 22 121/105 94 L 02/17/18 22:02 96 18 116/69 97 02/17/18 21:52 91 22 111/63 99 02/17/18 21:42 90 22 118/60 98 02/17/18 21:32 81 22 174/76 95 02/17/18 21:27 88 22 116/69 99 02/17/18 21:22 88 22 111/65 95 02/17/18 21:12 90 22 114/67 99 02/17/18 21:07 88 22 112/65 96 02/17/18 21:02 88 22 113/63 97 11/02/17 20:55 88 22 93/61 98 11/02/17 20:45 93 22 93/58 99 11/02/17 20:35 92 18 116/64 98 11/02/17 20:25 84 18 112/65 100 11/02/17 20:18 86 18 105/60 99 11/02/17 20:02 86 18 96/55 100 11/02/17 20:01 94 18 77/47 98 11/02/17 19:57 88 18 104/55 99 11/02/17 19:52 88 18 81/50 98 11/02/17 19:46 90 18 70/48 98 11/02/17 19:44 92 18 68/42 98 11/02/17 19:34 94 18 81/47 98 11/02/17 19:24 92 18 115/58 100 11/02/17 19:19 96 22 141/71 96 11/02/17 19:00 102 H 11/02/17 18:40 108 H 11/02/17 18:20 108 H 11/02/17 17:28 98.2 F 102 H 30 H 176/86 85 L 11/02/17 17:20 36 H Intake and Output 11/02/17 11/03/17 11/03/17 22:59 06:59 14:59 Intake Total 20.786 90.20 Output Total 300 Balance -279.214 90.20 Intake: Intake, IV Titration 20.786 90.20 Amount Propofol 1,000 mg In 10.986 Empty Bag 1 bag @ Titrate IV .Q0M ONE Rx#: [id number] Propofol 1,000 mg In 9.8 90.20 Empty Bag 1 bag @ Titrate IV .Q0M STA Rx#: [id number] Output: Urine 300 Uretheral ([place]) 300 Other: Weight 104.326 kg PHYSICAL EXAMINATION: Patient is lying in the bed comfortably, no acute distress, awake alert but could not provide any history HEENT: Normocephalic. Neck is supple. Pupils reactive. Nostrils clear. Oral cavity is moist. Ears reveal no drainage. Neck reveals no JVD, carotid bruits, or thyromegaly. CHEST EXAMINATION: Trachea is central. Symmetrical expansion. Bilateral diminished air entry in the rhonchi positive CARDIAC: Normal S1, S2 with no gallops. Systolic murmur ABDOMEN: Soft. Bowel sounds normal. No organomegaly. No abdominal bruits. Extremities: reveal no edema. No clubbing or cyanosis Neurologically awake, alert,. Able to move all extremities. No focal deficits noted Skin: No rash or skin lesions. Psychiatric: Could not assessed completely Musculoskeletal: No joint swelling or deformity. Normal range of motion. Results CBC & Chem 7: 11/03/17 05:23 11/03/17 05:23 Labs: Abnormal Lab Results - Last 24 Hours (Table) 11/02/17 11/02/17 11/02/17 Range/Units 17:34 17:34 17:34 RBC (4.30-5.90) m/uL MCV 103.3 H (80.0-100.0) fL MCHC 29.5 L (31.0-37.0) g/dL Lymphocytes # 0.6 L (1.0-4.8) k/uL D-Dimer (<0.60) mg/L FEU ABG pH (7.35-7.45) ABG pCO2 (35-45) mmHg ABG pO2 (83-108) mmHg ABG HCO3 (21-25) mmol/L ABG Total CO2 (19-24) mmol/L ABG O2 Saturation (94-97) % Potassium 5.6 H (3.5-5.1) mmol/L Chloride 90 L (98-107) mmol/L Carbon Dioxide 45 H* (22-30) mmol/L BUN 21 H (9-20) mg/dL Glucose 159 H (74-99) mg/dL AST 64 H (17-59) U/L Alkaline Phosphatase 155 H (38-126) U/L Total Creatine Kinase 180 H (55-170) U/L Total Protein 8.5 H (6.3-8.2) g/dL Albumin (3.5-5.0) g/dL 11/02/17 11/02/17 11/02/17 Range/Units 17:34 18:18 20:21 RBC (4.30-5.90) m/uL MCV (80.0-100.0) fL MCHC (31.0-37.0) g/dL Lymphocytes # (1.0-4.8) k/uL D-Dimer 1.37 H (<0.60) mg/L FEU ABG pH 7.25 L 7.30 L (7.35-7.45) ABG pCO2 105 H* 83 H* (35-45) mmHg ABG pO2 56 L 346 H (83-108) mmHg ABG HCO3 46 H* 41 H* (21-25) mmol/L ABG Total CO2 49 H 44 H (19-24) mmol/L ABG O2 Saturation 87.2 L 99.8 H (94-97) % Potassium (3.5-5.1) mmol/L Chloride (98-107) mmol/L Carbon Dioxide (22-30) mmol/L BUN (9-20) mg/dL Glucose (74-99) mg/dL AST (17-59) U/L Alkaline Phosphatase (38-126) U/L Total Creatine Kinase (55-170) U/L Total Protein (6.3-8.2) g/dL Albumin (3.5-5.0) g/dL 11/03/17 11/03/17 11/03/17 Range/Units 05:23 05:23 08:38 RBC 4.26 L (4.30-5.90) m/uL MCV 103.2 H (80.0-100.0) fL MCHC 29.7 L (31.0-37.0) g/dL Lymphocytes # (1.0-4.8) k/uL D-Dimer (<0.60) mg/L FEU ABG pH (7.35-7.45) ABG pCO2 52 H (35-45) mmHg ABG pO2 147 H (83-108) mmHg ABG HCO3 36 H (21-25) mmol/L ABG Total CO2 37 H (19-24) mmol/L ABG O2 Saturation 99.5 H (94-97) % Potassium (3.5-5.1) mmol/L Chloride 96 L (98-107) mmol/L Carbon Dioxide 37 H (22-30) mmol/L BUN 24 H (9-20) mg/dL Glucose 106 H (74-99) mg/dL AST (17-59) U/L Alkaline Phosphatase (38-126) U/L Total Creatine Kinase (55-170) U/L Total Protein (6.3-8.2) g/dL Albumin 3.2 L (3.5-5.0) g/dL Microbiology - Last 24 Hours (Table) 11/02/17 19:36 Sputum Culture - Preliminary Sputum Assessment and Plan Assessment: Acute hypoxic and hypercapnic respiratory failure secondary to severe end-stage COPD, emphysema. History of DVT Hypertension Hyperlipidemia coronary artery disease with previous history of NM and multiple stents Obesity Poor functional status CODE STATUS. Comfort measures Plan: Patient was started on bronchodilators, antibiotics, steroids. After discussing with the family regarding h his overall clinical condition, family has decided to go with comfort measures only at this time. Patient is extubated and is currently on morphine drip for pain management. Discussed with his son at bedside as well.. Time with Patient: Greater than 30
[2017-11-04] MEDS: methylPREDNISolone SOD SUCCI 125 MG/2 ML VIAL IV SCH ×4 (05:55→23:21)
[2017-11-04] MEDS: LEVOTHYROXINE 25 MCG TAB PO SCH (06:16)
[2017-11-04] MEDS: FUROSEMIDE 20 MG TAB PO SCH ×2 (07:49→16:16)
[2017-11-04] MEDS: LISINOPRIL 5 MG TAB PO SCH (07:49)
[2017-11-04] MEDS: ASPIRIN 81 MG PO SCH (07:49)
[2017-11-04] MEDS: ENOXAPARIN 40 MG/0.4 ML SYRINGE SQ SCH (07:49)
[2017-11-04] MEDS: METOPROLOL TARTRATE 50 MG TAB PO SCH ×2 (07:49→22:32)
[2017-11-04] MEDS: PHENYTOIN SODIUM EXTENDED 100 MG CAP PO SCH ×2 (07:50→22:32)
[2017-11-04] MEDS: NITROGLYCERIN 0.4MG/HR PATCH TRANSDERM SCH (07:50)
[2017-11-04] MEDS: PIPERACILLIN-TAZOBACTAM 3.375 GM in DEXTROSE/WATER 1 50ML.BAG IVPB SCH ×3 (07:50→23:21)
[2017-11-04] MEDS: THEOPHYLLINE 80 MG/15 ML PO SCH ×2 (07:50→22:33)
[2017-11-04] MEDS: CHOLECALCIFEROL 1,000 UNIT TAB PO SCH (07:50)
[2017-11-04] MEDS: PANTOPRAZOLE 40 MG/10 ML VIAL IV SCH (07:50)
--- NOTE | 2017-11-04 11:21 | P.PN ---
Subjective Patient is a pleasant 72-year-old gentleman with the history of COPD with only 5 % residual lung function was admitted for COPD exacerbation was intubated secondary to respiratory failure from COPD exacerbation as per the family request patient was terminally extubated. Although patient survived and did well because of which family has questions regarding hospice and comfort care and had an extensive discussion with the family patient overall prognosis extremely poor his improvement is secondary to aggressive treatment of COPD. Patient functionality appears to be extremely poor only walks from his chair to the bathroom with significant shortness of breath wears 2 L of oxygen at home. Patient in spite of 1 mg of IV morphine for comfort is able to understand but little drowsy. I discussed with the patient regarding his goals of care patient is presently DO NOT RESUSCITATE and he wanted his family couldn't make addition for him regarding hospice. As per the family wishes hospice was consulted will continue with IV morphine continue treatment until the actual ration of hospices made. Objective - Vital Signs Vital signs: Vital Signs Temp 97.8 F 11/04/17 07:00 Pulse 71 11/04/17 07:00 Resp 18 11/04/17 07:00 BP 135/67 11/04/17 07:00 Pulse Ox 98 11/04/17 07:00 Intake & Output 11/03/17 11/04/17 11/04/17 18:59 06:59 18:59 Intake Total 359 Output Total 1400 Balance -1041 Weight 104.326 kg Intake: IV 59 Morphine Sulfate (100 mg/ 9 2 ml) 100 mg In Sodium Chloride 0.9% 100 ml @ 1 MG/HR 1.02 mls/hr IV . Q24H [facility] Rx#:[id number] Piperacillin-Tazobactam 3 50 .375 gm In Dextrose/Water 1 50ml.bag @ 12.5 mls/hr IVPB Q8HR [facility] Rx#: [id number] Oral 300 Output: Urine 1400 Uretheral ([place]) 1400 Other: Voiding Method Indwelling Catheter Indwelling Catheter Indwelling Catheter - Exam PHYSICAL EXAMINATION: GENERAL: The patient is drowsy oriented 2, is in respiratory distress. Well developed, well nourished. HEENT: Pupils are round and equally reacting to light. EOMI. No scleral icterus. No conjunctival pallor. Normocephalic, atraumatic. No pharyngeal erythema. No thyromegaly. CARDIOVASCULAR: S1 and S2 present. No murmurs, rubs, or gallops. PULMONARY: Decreased air entry and expiratory wheezing was appreciated bilaterally ABDOMEN: Soft, nontender, nondistended, normoactive bowel sounds. No palpable organomegaly. MUSCULOSKELETAL: No joint swelling or deformity. EXTREMITIES: No cyanosis, clubbing, or pedal edema. NEUROLOGICAL: Gross neurological examination did not reveal any focal deficits. SKIN: No rashes. - Labs CBC & Chem 7: 11/03/17 05:23 11/03/17 05:23 Labs: Abnormal Lab Results - Last 24 Hours (Table) 11/03/17 Range/Units 05:23 Hemoglobin A1c 6.2 H (4.0-6.0) % Microbiology - Last 24 Hours (Table) 11/02/17 17:34 Blood Culture - Preliminary Blood No Growth after 24 hours 11/02/17 19:36 Gram Stain - Preliminary Sputum Sputum Culture - Preliminary Assessment and Plan Plan: Acute hypoxic and hypercapnic respiratory failure secondary to severe end-stage COPD, emphysema. History of DVT Hypertension Hyperlipidemia coronary artery disease with previous history of NM and multiple stents Obesity Poor functional status CODE STATUS. Comfort measures Plan: Patient can use to be on bronchodilators, antibiotics, steroids. Continue with IV morphine and hospice was consulted
[2017-11-04] MEDS: MULTIVITAMINS, THERA 1 EACH TAB PO SCH (11:39)
--- NOTE | 2017-11-04 12:48 | P.PN ---
Subjective Progress Note Date: 11/04/17 Principal diagnosis: acute hypoxic and hypercapnic respiratory failure secondary to severe end-stage COPD, emphysema This is a 72-year-old white male with history of severe end-stage COPD, O2 dependent, prednisone dependent, his COPD is mostly related to severe emphysema. Patient normally sees a pulmonary physician at the [facility], and I have seen the patient last about 6 months ago, and at the time he came in for O2 certification, and he qualified for that easily. Patient was advised to remain on home O2 at the time, advised to continue his bronchodilators, and to remain on prednisone. This was back in May of 2017. And the patient has not been seen since. According to the family he has been experiencing shortness of breath with any activity, and shortness of breath has become much worse. Patient was brought into the ER last night with severe shortness of breath, and he was unable to talk, he was tachypneic, tachycardic, and he was getting more lethargic and obtunded. He was falling asleep easily upon arrival to the ER. Placed on BiPAP, but considering his mental status was getting worse , and his pCO2 was significantly elevated just over 100, patient was intubated, placed on mechanical ventilation, and I was asked to see him on consultation. I saw him this morning, I reviewed his CT of the chest, reviewed all the workup done by the ER physician, reviewed by notes from the office and his previous meds, discussed with his family at bedside his condition, and the family is seriously considering comfort care measures at the time. His son and daughter seem to be very agreeable to comfort care measures, and they will discuss this with the . was not present at the time of my evaluation. His ventilator settings were adjusted. I cut down his stomach volume to 400, His rate at 22, and adjust his flow rates. CT of the chest was reviewed it showed mostly severe bullous emphysema and some fibrotic changes/nonspecific. But the emphysematous changes in both lungs were quite impressive. On 11/04/2017 patient is seen in follow-up on oncology floor. He extubated yesterday to nasal cannula. he is tolerating it well so far, he is awake, resting in bed. Lung sounds show extremely diminished air entry bilaterally, with very faint end expiratory wheezing bilaterally. Patient has a dry nonproductive cough. on 3 L per nasal cannula his O2 sat ranges between 90-98%. He is afebrile, vital signs are stable. Patient's family is at the bedside, his and daughter and son. They'll had a meeting with the [facility] used equipment sales representative and they are interested in enrolling in hospice as they state they do not want the patient to go through intubation and placement on life- support anymore. Patient is currently on IV morphine while awaiting actual enrollment in hospice. Objective - Vital Signs Vital signs: Vital Signs Temp 97.8 F 11/04/17 07:00 Pulse 71 11/04/17 07:00 Resp 18 11/04/17 07:00 BP 135/67 11/04/17 07:00 Pulse Ox 98 11/04/17 07:00 Intake & Output 11/03/17 11/04/17 11/04/17 18:59 06:59 18:59 Intake Total 359 Output Total 1400 Balance -1041 Weight 104.326 kg Intake: IV 59 Morphine Sulfate (100 mg/ 9 2 ml) 100 mg In Sodium Chloride 0.9% 100 ml @ 1 MG/HR 1.02 mls/hr IV . Q24H [facility] Rx#:[id number] Piperacillin-Tazobactam 3 50 .375 gm In Dextrose/Water 1 50ml.bag @ 12.5 mls/hr IVPB Q8HR [facility] Rx#: [id number] Oral 300 Output: Urine 1400 Uretheral ([place]) 1400 Other: Voiding Method Indwelling Catheter Indwelling Catheter Indwelling Catheter - Exam Physical Exam: Revealed a 72-year-old white male, cushingoid, awake, on 3 L per nasal cannula, sluggish to respond, no distress presently morphine drip. Head: Cushingoid, atraumatic, normocephalic. HEENT:[Neck is supple.] [No neck masses.] [No thyromegaly.] [No JVD.] Endotracheal tube and orogastric tube were noted to be intact. Chest: Diminished breath sound bilaterally, no crackles, no rhonchi, no wheezes..] Cardiac Exam: [Distant S1 and S2, no S3 gallop, no murmur.] Abdomen: [Obese, Soft, nontender, no megaly, no rebound, no guarding, normal bowel sounds.] Extremities: [No clubbing, no edema, no cyanosis.] Neurological Exam: awake, slow to respond, but appropriate, no focal deficits noted Psychiatric: intact insight noted. Musculoskeletal: no joint swelling or deformity noted - Labs CBC & Chem 7: 11/03/17 05:23 11/03/17 05:23 Labs: Abnormal Lab Results - Last 24 Hours (Table) 11/03/17 Range/Units 05:23 Hemoglobin A1c 6.2 H (4.0-6.0) % Microbiology - Last 24 Hours (Table) 11/02/17 17:34 Blood Culture - Preliminary Blood No Growth after 24 hours 11/02/17 19:36 Gram Stain - Preliminary Sputum Sputum Culture - Preliminary Assessment and Plan Plan: Acute hypoxic and hypercapnic respiratory failure secondary to severe end-stage COPD, emphysema. History of multiple comorbidities including deep vein thrombosis, hyperlipidemia , hypertension, coronary artery disease and previous [place], and history of seizure disorder. Recommendation: Patient was extubated yesterday to 3 L per nasal cannula. Patient's family together with the patient made a decision for status DO NOT RESUSCITATE, they had met with the [facility] hospice used equipment sales representative, and they would like to proceed with enrollment in hospice at this time. This is reasonable considering patient's severe end-stage COPD, bullous emphysema, multiple comorbidities and poor functional status. I performed a history & physical examination of the patient and discussed their management with my nurse practitioner, Anita Gresham. I reviewed the nurse practitioner's note and agree with the documented findings and plan of care. Lung sounds are positive very diminished air entry bilaterally. The findings and the impression was discussed with the patient. I attest to the documentation by the nurse practitioner. Time with Patient: Less than 30
[2017-11-04] MEDS: MORPHINE SULFATE (100 MG/2 ML) 100 MG in SODIUM CHLORIDE 0.9% 100 ML IV SCH (13:45)
[2017-11-04] MEDS: SODIUM CHLORIDE 0.9% 1,000 ML IV SCH (13:46)
[2017-11-04] MEDS: ATORVASTATIN 10 MG TAB PO SCH (22:32)
[2017-11-05] MEDS: methylPREDNISolone SOD SUCCI 125 MG/2 ML VIAL IV SCH ×2 (06:21→11:38)
[2017-11-05] MEDS: LEVOTHYROXINE 25 MCG TAB PO SCH (06:22)
[2017-11-05] MEDS: PIPERACILLIN-TAZOBACTAM 3.375 GM in DEXTROSE/WATER 1 50ML.BAG IVPB SCH (08:00)
[2017-11-05] MEDS: PANTOPRAZOLE 40 MG/10 ML VIAL IV SCH (08:01)
[2017-11-05 08:09] VITALS: RESP 18
[2017-11-05] MEDS: CHOLECALCIFEROL 1,000 UNIT TAB PO SCH (09:15)
[2017-11-05] MEDS: FUROSEMIDE 20 MG TAB PO SCH ×2 (09:15→16:34)
[2017-11-05] MEDS: ASPIRIN 81 MG PO SCH (09:15)
[2017-11-05] MEDS: METOPROLOL TARTRATE 50 MG TAB PO SCH ×2 (09:16→22:26)
[2017-11-05] MEDS: ENOXAPARIN 40 MG/0.4 ML SYRINGE SQ SCH (09:16)
[2017-11-05] MEDS: LISINOPRIL 5 MG TAB PO SCH (09:16)
[2017-11-05] MEDS: NITROGLYCERIN 0.4MG/HR PATCH TRANSDERM SCH (09:17)
[2017-11-05] MEDS: PHENYTOIN SODIUM EXTENDED 100 MG CAP PO SCH ×2 (09:17→22:26)
[2017-11-05] MEDS: THEOPHYLLINE 80 MG/15 ML PO SCH (09:18)
--- NOTE | 2017-11-05 12:27 | P.PN ---
Subjective Progress Note Date: 11/05/17 Principal diagnosis: acute hypoxic and hypercapnic respiratory failure secondary to severe end-stage COPD, emphysema This is a 72-year-old white male with history of severe end-stage COPD, O2 dependent, prednisone dependent, his COPD is mostly related to severe emphysema. Patient normally sees a pulmonary physician at the [facility], and I have seen the patient last about 6 months ago, and at the time he came in for O2 certification, and he qualified for that easily. Patient was advised to remain on home O2 at the time, advised to continue his bronchodilators, and to remain on prednisone. This was back in May of 2017. And the patient has not been seen since. According to the family he has been experiencing shortness of breath with any activity, and shortness of breath has become much worse. Patient was brought into the ER last night with severe shortness of breath, and he was unable to talk, he was tachypneic, tachycardic, and he was getting more lethargic and obtunded. He was falling asleep easily upon arrival to the ER. Placed on BiPAP, but considering his mental status was getting worse , and his pCO2 was significantly elevated just over 100, patient was intubated, placed on mechanical ventilation, and I was asked to see him on consultation. I saw him this morning, I reviewed his CT of the chest, reviewed all the workup done by the ER physician, reviewed by notes from the office and his previous meds, discussed with his family at bedside his condition, and the family is seriously considering comfort care measures at the time. His son and daughter seem to be very agreeable to comfort care measures, and they will discuss this with the . was not present at the time of my evaluation. His ventilator settings were adjusted. I cut down his stomach volume to 400, His rate at 22, and adjust his flow rates. CT of the chest was reviewed it showed mostly severe bullous emphysema and some fibrotic changes/nonspecific. But the emphysematous changes in both lungs were quite impressive. On 11/04/2017 patient is seen in follow-up on oncology floor. He extubated yesterday to nasal cannula. he is tolerating it well so far, he is awake, resting in bed. Lung sounds show extremely diminished air entry bilaterally, with very faint end expiratory wheezing bilaterally. Patient has a dry nonproductive cough. on 3 L per nasal cannula his O2 sat ranges between 90-98%. He is afebrile, vital signs are stable. Patient's family is at the bedside, his and daughter and son. They'll had a meeting with the [facility] hospice rental representative and they are interested in enrolling in hospice as they state they do not want the patient to go through intubation and placement on life- support anymore. Patient is currently on IV morphine while awaiting actual enrollment in hospice. On 11/05/2017 patient seen in follow-up on oncology floor. He is resting in bed , denies any acute distress. He remains on morphine drip at 1 mg per hour, his family and the patient have decided on hospice care. Patient currently is fairly comfortable on 3 L per nasal cannula, lung sounds are very diminished air entry bilaterally. Patient is anticipated to be discharged home today with [facility] per patient's wishes. Objective - Vital Signs Vital signs: Vital Signs Temp 97.8 F 11/05/17 07:00 Pulse 83 11/05/17 09:57 Resp 18 11/05/17 09:57 BP 140/67 11/05/17 07:00 Pulse Ox 100 11/05/17 07:00 Intake & Output 11/04/17 11/05/17 11/05/17 18:59 06:59 18:59 Intake Total 210 159 Output Total 600 Balance 210 -441 Intake: IV 50 59 Morphine Sulfate (100 mg/ 9 2 ml) 100 mg In Sodium Chloride 0.9% 100 ml @ 1 MG/HR 1.02 mls/hr IV . Q24H [facility] Rx#:[id number] Piperacillin-Tazobactam 3 50 50 .375 gm In Dextrose/Water 1 50ml.bag @ 12.5 mls/hr IVPB Q8HR [facility] Rx#: [id number] Intake, IV Titration 160 Amount Sodium Chloride 0.9% 1, 160 000 ml @ 20 mls/hr IV . Q24H [facility] Rx#:[id number] Oral 100 Output: Urine 600 Uretheral ([place]) 600 Other: Voiding Method Indwelling Catheter Indwelling Catheter Indwelling Catheter - Exam Physical Exam: Revealed a 72-year-old white male, cushingoid, awake, on 3 L per nasal cannula, sluggish to respond, no distress presently morphine drip. Head: Cushingoid, atraumatic, normocephalic. HEENT:[Neck is supple.] [No neck masses.] [No thyromegaly.] [No JVD.] Endotracheal tube and orogastric tube were noted to be intact. Chest: Diminished breath sound bilaterally, no crackles, no rhonchi, no wheezes..] Cardiac Exam: [Distant S1 and S2, no S3 gallop, no murmur.] Abdomen: [Obese, Soft, nontender, no megaly, no rebound, no guarding, normal bowel sounds.] Extremities: [No clubbing, no edema, no cyanosis.] Neurological Exam: awake, slow to respond, but appropriate, no focal deficits noted Psychiatric: intact insight noted. Musculoskeletal: no joint swelling or deformity noted - Labs CBC & Chem 7: 11/03/17 05:23 11/03/17 05:23 Labs: Microbiology - Last 24 Hours (Table) 11/02/17 17:34 Blood Culture - Preliminary Blood No Growth after 48 hours Assessment and Plan Plan: Acute hypoxic and hypercapnic respiratory failure secondary to severe end-stage COPD, emphysema. History of multiple comorbidities including deep vein thrombosis, hyperlipidemia , hypertension, coronary artery disease and previous [place], and history of seizure disorder. Recommendation: Patient is fairly comfortable at this time, remains on morphine drip at 1 mg per hour. Patient remains severely limited in terms of activity tolerance. He has been bedbound since admission. Patient and his family have reached a decision to go home with hospice today, arrangements are being made to proceed with discharge home today. I performed a history & physical examination of the patient and discussed their management with my nurse practitioner, Anita Gresham. I reviewed the nurse practitioner's note and agree with the documented findings and plan of care. Lung sounds are positive very diminished air entry bilaterally. The findings and the impression was discussed with the patient. I attest to the documentation by the nurse practitioner. Time with Patient: Less than 30
[2017-11-05] MEDS: MULTIVITAMINS, THERA 1 EACH TAB PO SCH (12:37)
[2017-11-05] MEDS: MORPHINE SULFATE (100 MG/2 ML) 100 MG in SODIUM CHLORIDE 0.9% 100 ML IV SCH (12:47)
[2017-11-05] MEDS: SODIUM CHLORIDE 0.9% 1,000 ML IV SCH (12:48)
--- NOTE | 2017-11-05 12:51 | P.PN ---
Subjective Patient is a pleasant 72-year-old gentleman with the history of COPD with only 5 % residual lung function was admitted for COPD exacerbation was intubated secondary to respiratory failure from COPD exacerbation as per the family request patient was terminally extubated. Although patient survived and did well because of which family has questions regarding hospice and comfort care and had an extensive discussion with the family patient overall prognosis extremely poor his improvement is secondary to aggressive treatment of COPD. Patient functionality appears to be extremely poor only walks from his chair to the bathroom with significant shortness of breath wears 2 L of oxygen at home. Patient in spite of 1 mg of IV morphine for comfort is able to understand but little drowsy. I discussed with the patient regarding his goals of care patient is presently DO NOT RESUSCITATE and he wanted his family couldn't make addition for him regarding hospice. As per the family wishes hospice was consulted will continue with IV morphine continue treatment until the actual ration of hospices made. 11/05/2017 Family decided on hospice patient will be discharged home tomorrow on hospice all the medications were discontinued except for the comfort medications. Patient although doesn't have any complaints at this time I clarified all the questions patient's family had. Patient family requested to leave antiseizure medications which will be left. Objective - Vital Signs Vital signs: Vital Signs Temp 97.8 F 11/05/17 07:00 Pulse 83 11/05/17 09:57 Resp 18 11/05/17 09:57 BP 140/67 11/05/17 07:00 Pulse Ox 100 11/05/17 07:00 Intake & Output 11/04/17 11/05/17 11/05/17 18:59 06:59 18:59 Intake Total 210 159 Output Total 600 Balance 210 -441 Intake: IV 50 59 Morphine Sulfate (100 mg/ 9 2 ml) 100 mg In Sodium Chloride 0.9% 100 ml @ 1 MG/HR 1.02 mls/hr IV . Q24H [facility] Rx#:[id number] Piperacillin-Tazobactam 3 50 50 .375 gm In Dextrose/Water 1 50ml.bag @ 12.5 mls/hr IVPB Q8HR [facility] Rx#: [id number] Intake, IV Titration 160 Amount Sodium Chloride 0.9% 1, 160 000 ml @ 20 mls/hr IV . Q24H [facility] Rx#:[id number] Oral 100 Output: Urine 600 Uretheral ([place]) 600 Other: Voiding Method Indwelling Catheter Indwelling Catheter Indwelling Catheter - Exam PHYSICAL EXAMINATION: GENERAL: The patient is drowsy oriented 2, is in respiratory distress. Well developed, well nourished. HEENT: Pupils are round and equally reacting to light. EOMI. No scleral icterus. No conjunctival pallor. Normocephalic, atraumatic. No pharyngeal erythema. No thyromegaly. CARDIOVASCULAR: S1 and S2 present. No murmurs, rubs, or gallops. PULMONARY: Decreased air entry and expiratory wheezing was appreciated bilaterally ABDOMEN: Soft, nontender, nondistended, normoactive bowel sounds. No palpable organomegaly. MUSCULOSKELETAL: No joint swelling or deformity. EXTREMITIES: No cyanosis, clubbing, or pedal edema. NEUROLOGICAL: Gross neurological examination did not reveal any focal deficits. SKIN: No rashes. - Labs CBC & Chem 7: 11/03/17 05:23 11/03/17 05:23 Labs: Microbiology - Last 24 Hours (Table) 11/02/17 17:34 Blood Culture - Preliminary Blood No Growth after 48 hours Assessment and Plan Plan: Acute hypoxic and hypercapnic respiratory failure secondary to severe end-stage COPD, emphysema. History of DVT Hypertension Hyperlipidemia coronary artery disease with previous history of [place] and multiple stents Obesity Poor functional status CODE STATUS. Comfort measures Plan: All the medications except for comfort medications were discontinued and patient is hospice here and will be discharged home tomorrow as home hospice
[2017-11-05 22:33] VITALS: BP 129/71; PULSE 79; TEMP 98.5
[2017-11-06] MEDS ORDERED: SCOPOLAMINE 1.5MG/72HR PATCH TRANSDERM STA (04:37)
[2017-11-06] MEDS: FUROSEMIDE 20 MG TAB PO SCH (07:31)
[2017-11-06] MEDS: METOPROLOL TARTRATE 50 MG TAB PO SCH (08:03)
[2017-11-06] MEDS: PHENYTOIN SODIUM EXTENDED 100 MG CAP PO SCH (08:03)
[2017-11-06] MEDS: MULTIVITAMINS, THERA 1 EACH TAB PO SCH (09:58)
[2017-11-06] MEDS: MORPHINE SULFATE (100 MG/2 ML) 100 MG in SODIUM CHLORIDE 0.9% 100 ML IV SCH (09:58)
--- NOTE | 2017-11-06 14:18 | P.DS ---
Providers Date of admission: 11/02/17 21:34 Attending physician: Justni Ruiz Consults: 11/02/17 21:19 Consult Physician Stat Consulting Provider: Arsalan Woods Reason/Comments: Respiratory failure Do you want consulting provider notified?: Yes Primary care physician: [facility] Hospital Course: Patient will be discharged to inpatient hospice and please up at my progress note for further details of hospital course and treatment. Plan - Discharge Summary Discharge Rx Participant: No New Discharge Prescriptions: No Action Theophylline Anhydrous [Theochron] 200 mg PO BID Nitroglycerin 0.4MG/Hr Patch [Nitro-Dur 0.4MG/Hr Patch] 0.4 mg TRANSDERM DAILY Benazepril [Lotensin] 5 mg PO DAILY Metoprolol Tartrate [Lopressor] 50 mg PO BID Simvastatin [Zocor] 20 mg PO HS Phenytoin Sodium Extended [Dilantin] 200 mg PO BID #1 cap Omeprazole [PriLOSEC] 20 mg PO DAILY Levothyroxine Sodium [Synthroid] 25 mcg PO DAILY Albuterol Nebulized [Ventolin Nebulized] 2.5 mg INHALATION RT-Q4H PRN PRN Reason: sob Aspirin EC [Ecotrin Low Dose] 81 mg PO DAILY Budesonide/Formoterol Fumarate [Symbicort 160-4.5 Mcg Inhaler] 2 puff INHALATION RT-BID Cholecalciferol [Vitamin D3] 1,000 unit PO DAILY Furosemide [Lasix] 20 mg PO AC-BID Ipratropium Nebulized [Atrovent Nebulized] 0.5 mg INHALATION RT-Q4H PRN PRN Reason: sob Multivitamins, Thera [Multivitamin (formulary)] 1 tab PO DAILY Discharge Medication List Benazepril [Lotensin] 5 mg PO DAILY 10/16/14 [History] Metoprolol Tartrate [Lopressor] 50 mg PO BID 10/16/14 [History] Nitroglycerin 0.4MG/Hr Patch [Nitro-Dur 0.4MG/Hr Patch] 0.4 mg TRANSDERM DAILY 10/16/14 [History] Theophylline Anhydrous [Theochron] 200 mg PO BID 10/16/14 [History] Simvastatin [Zocor] 20 mg PO HS 10/18/14 [History] Phenytoin Sodium Extended [Dilantin] 200 mg PO BID #1 cap 10/23/14 [Rx] Omeprazole [PriLOSEC] 20 mg PO DAILY 11/10/14 [History] Levothyroxine Sodium [Synthroid] 25 mcg PO DAILY 02/13/16 [History] Albuterol Nebulized [Ventolin Nebulized] 2.5 mg INHALATION RT-Q4H PRN 11/02/17 [ History] Aspirin EC [Ecotrin Low Dose] 81 mg PO DAILY 11/02/17 [History] Budesonide/Formoterol Fumarate [Symbicort 160-4.5 Mcg Inhaler] 2 puff INHALATION RT-BID 11/02/17 [History] Cholecalciferol [Vitamin D3] 1,000 unit PO DAILY 11/02/17 [History] Furosemide [Lasix] 20 mg PO AC-BID 11/02/17 [History] Ipratropium Nebulized [Atrovent Nebulized] 0.5 mg INHALATION RT-Q4H PRN [History] Multivitamins, Thera [Multivitamin (formulary)] 1 tab PO DAILY 11/02/17 [History ] Follow up Appointment(s)/Referral(s): [facility],Clinic [Primary Care Provider] - 1-2 days Discharge Disposition: HOME SELF-CARE
--- NOTE | 2017-11-06 14:29 | P.HPIM ---
History of Present Illness Patient is being admitted as general inpatient hospice for symptom management. Patient was made hospice as per the family request patient has advanced COPD Review of Systems Not relevant Past Medical History Past Medical History: Chest Pain / Angina, Heart Failure, COPD, Deep Vein Thrombosis (DVT), Hyperlipidemia, Hypertension, Myocardial Infarction ([place]), Seizure Disorder Additional Past Medical History / Comment(s): [place] 2010, SEIZURE EVERYTIME HE COUGHS (HEAVY IN 2011) Last Myocardial Infarction Date:: 2010 History of Any Multi-Drug Resistant Organisms: None Reported Past Surgical History: Heart Catheterization With Stent Additional Past Surgical History / Comment(s): 8 STENTS Past Anesthesia/Blood Transfusion Reactions: No Reported Reaction Additional Past Anesthesia/Blood Transfusion Reaction / Comment(s): NEVER HAD ONE Date of Last Stent Placement:: 2010 Past Psychological History: No Psychological Hx Reported Smoking Status: Former smoker Past Alcohol Use History: None Reported Past Drug Use History: None Reported - Past Family History Mother Family Medical History: Cancer Additional Family Medical History / Comment(s): BONE CANCER Father Family Medical History: No Reported History Medications and Allergies Home Medications Medication Instructions Recorded Confirmed Type Benazepril [Lotensin] 5 mg PO DAILY 10/16/14 11/06/17 History Metoprolol Tartrate [Lopressor] 50 mg PO BID 10/16/14 11/06/17 History Nitroglycerin 0.4MG/Hr Patch 0.4 mg TRANSDERM DAILY 10/16/14 11/06/17 History [Nitro-Dur 0.4MG/Hr Patch] Theophylline Anhydrous [Theochron] 200 mg PO BID 10/16/14 11/06/17 History Simvastatin [Zocor] 20 mg PO HS 10/18/14 11/06/17 History Phenytoin Sodium Extended 200 mg PO BID #1 cap 10/23/14 11/06/17 Rx [Dilantin] Omeprazole [PriLOSEC] 20 mg PO DAILY 11/10/14 11/06/17 History Levothyroxine Sodium [Synthroid] 25 mcg PO DAILY 02/13/16 11/06/17 History Albuterol Nebulized [Ventolin 2.5 mg INHALATION RT-Q4H PRN 11/02/17 11/06/17 History Nebulized] Aspirin EC [Ecotrin Low Dose] 81 mg PO DAILY 11/02/17 11/06/17 History Budesonide/Formoterol Fumarate 2 puff INHALATION RT-BID 11/02/17 11/06/17 History [Symbicort 160-4.5 Mcg Inhaler] Cholecalciferol [Vitamin D3] 1,000 unit PO DAILY 11/02/17 11/06/17 History Furosemide [Lasix] 20 mg PO AC-BID 11/02/17 11/06/17 History Ipratropium Nebulized [Atrovent 0.5 mg INHALATION RT-Q4H PRN 11/02/17 11/06/17 History Nebulized] Multivitamins, Thera [Multivitamin 1 tab PO DAILY 11/02/17 11/06/17 History (formulary)] Allergies Allergy/AdvReac Type Severity Reaction Status Date / Time No Known Allergies Allergy Verified 11/06/17 13:28 Physical Exam Vitals: Vital Signs Temp Pulse Resp BP Pulse Ox 11/05/17 22:32 98.5 F 79 18 129/71 96 11/05/17 15:00 98.3 F 81 18 130/71 94 L Intake and Output 11/05/17 11/06/17 11/06/17 22:59 06:59 14:59 Intake Total 64.43 30.88 Output Total 650 325 Balance -585.57 -294.12 Intake: IV 20 Morphine Sulfate (100 mg/ 20 2 ml) 100 mg In Sodium Chloride 0.9% 100 ml @ 1 MG/HR 1.02 mls/hr IV . Q24H [facility] Rx#:[id number] Intake, IV Titration 64.43 10.88 Amount Morphine Sulfate (100 mg/ 64.43 10.88 2 ml) 100 mg In Sodium Chloride 0.9% 100 ml @ 1 MG/HR 1.02 mls/hr IV . Q24H [facility] Rx#:[id number] Output: Urine 650 325 Uretheral ([place]) 650 Other: Voiding Method Indwelling Catheter Indwelling Catheter Indwelling Catheter # Voids 0 3 Patient is presently comfortable on IV morphine. Results CBC & Chem 7: 11/03/17 05:23 11/03/17 05:23 Labs: Microbiology - Last 24 Hours (Table) 11/02/17 19:36 Gram Stain - Final Sputum Sputum Culture - Final 11/02/17 17:34 Blood Culture - Preliminary Blood No Growth after 72 hours Thrombosis Risk Factor Assmnt - Choose All That Apply Each Factor Represents 1 point: Abnormal pulmonary function (COPD), Medical pt on bed rest, Obesity (BMI >25), Swollen legs (current) Each Risk Factor Represents 2 Points: Age 61-74 years Each Risk Factor Represents 3 Points: History of DVT/PE Thrombosis Risk Factor Assessment Total Risk Factor Score: 9 Thrombosis Risk Factor Assessment Level: High Risk Assessment and Plan Plan: Acute hypoxic and hypercapnic respiratory failure secondary to severe end-stage COPD, emphysema. History of DVT Hypertension Hyperlipidemia coronary artery disease with previous history of [place] and multiple stents Obesity Poor functional status CODE STATUS. Inpatient hospice Plan: Patient is presently general inpatient hospice and is on IV morphine
--- NOTE | 2017-11-12 09:15 | CDI ---
Last Revision, August 2017 Documentation Clarification Form Date: 11/12/2017 9:05:00 AM From: Vera Lucille Phone: If you have a question regarding this query, please contact [facility] Clinical Staff Educator at [phone] between 8am and 5pm Admit Date: 11/02/2017 9:34:00 PM Patient Name: Kobe Tinoco Visit Number: [id number] Discharge Date: 11/06/17 ATTENTION: The Clinical Documentation Specialists (CDI) and [facility] Coding Staff appreciate your assistance in clarifying documentation. Please respond to the clarification below the line at the bottom and electronically sign. The CDI & [facility] Coding staff will review the response and follow-up if needed. Please note: Queries are made part of the Legal Health Record. If you have any questions, please contact the author of this message via ITS. Dr. Torrey Santana CHF is documented in the past medical history in the ED note, H&P and Dr. Woods 's consult note. History/Risk Factors: Patient has a history of CAD, previous NE, hypertension and a history of smoking. VS/Pulse OX: T. 98.2, P. 102, R. 36, BP 176/86, Pulse Ox. 85% Treatment: Patient is on home med of Lasix 20 mg PO AC-BID In your professional opinion, can you please clarify the type of CHF if known? Systolic Heart Failure: Diastolic Heart Failure: Systolic & Diastolic Heart Failure: Other, please specify Please continue to document in your progress notes and discharge summary in order to capture severity of illness and risk of mortality. Include clinical findings that support your diagnosis. Unable to Determine_ MTDD
== END 2017-11-06 12:56 | disposition hospice, inpatient (51) | DRG 208 ==
LOC: EC 17:15 → 6ICU 21:34 → 5ONC 11-03 14:03
PROVIDERS: ADMIT Hospitalist; ATTEND Hospitalist
PROC: 5A1935Z Respiratory Ventilation, Less than 24 Consecutive Hours (ICD-10-PCS; principal; 2017-11-02)
PROC: 0BH17EZ Insertion of Endotracheal Airway into Trachea, Via Natural or Artificial Opening (ICD-10-PCS; 2017-11-02)
PROC: 5A09357 Assistance with Respiratory Ventilation, Less than 24 Consecutive Hours, Continuous Positive Airway Pressure (ICD-10-PCS; 2017-11-02)
DX: J96.01 Acute respiratory failure with hypoxia (principal); Z99.81 Dependence on supplemental oxygen; J43.9 Emphysema, unspecified; I11.0 Hypertensive heart disease with heart failure; I50.9 Heart failure, unspecified; G40.909 Epilepsy, unspecified, not intractable, without status epilepticus; J96.02 Acute respiratory failure with hypercapnia; Z51.5 Encounter for palliative care; I49.3 Ventricular premature depolarization; E66.9 Obesity, unspecified; E78.5 Hyperlipidemia, unspecified; I25.2 Old myocardial infarction; I25.10 Atherosclerotic heart disease of native coronary artery without angina pectoris; Z79.51 Long term (current) use of inhaled steroids; Z79.899 Other long term (current) drug therapy; Z79.82 Long term (current) use of aspirin; Z87.891 Personal history of nicotine dependence; Z86.718 Personal history of other venous thrombosis and embolism; Z66 Do not resuscitate; Z95.5 Presence of coronary angioplasty implant and graft; Z68.34 Body mass index [BMI] 34.0-34.9, adult
CPT/HCPCS: 36415; 36600; 43753; 51702; 71045; 71275; 80053; 82550; 82553; 82805; 83036; 84484; 85025; 85379; 85610; 85730; 87040; 87070; 87205; 93005; 94002; 94003; 94644; 94660; 96365; 96366; 96367; 96374; 96375; 99291

== ENCOUNTER 2017-11-06 13:01 | Inpatient (IN) | payer MEDICAID ==
--- NOTE | 2017-11-06 14:30 | P.HPIM ---
History of Present Illness Patient is being admitted as general inpatient hospice for symptom management. Patient was made hospice as per the family request patient has advanced COPD Review of Systems Not relevant Past Medical History Past Medical History: Chest Pain / Angina, Heart Failure, COPD, Deep Vein Thrombosis (DVT), Hyperlipidemia, Hypertension, Myocardial Infarction (NE), Seizure Disorder Additional Past Medical History / Comment(s): NE 2010, SEIZURE EVERYTIME HE COUGHS (HEAVY IN 2011) Last Myocardial Infarction Date:: 2010 History of Any Multi-Drug Resistant Organisms: None Reported Past Surgical History: Heart Catheterization With Stent Additional Past Surgical History / Comment(s): 8 STENTS Past Anesthesia/Blood Transfusion Reactions: No Reported Reaction Additional Past Anesthesia/Blood Transfusion Reaction / Comment(s): NEVER HAD ONE Date of Last Stent Placement:: 2010 Past Psychological History: No Psychological Hx Reported Smoking Status: Former smoker Past Alcohol Use History: None Reported Past Drug Use History: None Reported - Past Family History Mother Family Medical History: Cancer Additional Family Medical History / Comment(s): BONE CANCER Father Family Medical History: No Reported History Medications and Allergies Home Medications Medication Instructions Recorded Confirmed Type Benazepril [Lotensin] 5 mg PO DAILY 10/16/14 11/06/17 History Metoprolol Tartrate [Lopressor] 50 mg PO BID 10/16/14 11/06/17 History Nitroglycerin 0.4MG/Hr Patch 0.4 mg TRANSDERM DAILY 10/16/14 11/06/17 History [Nitro-Dur 0.4MG/Hr Patch] Theophylline Anhydrous [Theochron] 200 mg PO BID 10/16/14 11/06/17 History Simvastatin [Zocor] 20 mg PO HS 10/18/14 11/06/17 History Phenytoin Sodium Extended 200 mg PO BID #1 cap 10/23/14 11/06/17 Rx [Dilantin] Omeprazole [PriLOSEC] 20 mg PO DAILY 11/10/14 11/06/17 History Levothyroxine Sodium [Synthroid] 25 mcg PO DAILY 02/13/16 11/06/17 History Albuterol Nebulized [Ventolin 2.5 mg INHALATION RT-Q4H PRN 11/02/17 11/06/17 History Nebulized] Aspirin EC [Ecotrin Low Dose] 81 mg PO DAILY 11/02/17 11/06/17 History Budesonide/Formoterol Fumarate 2 puff INHALATION RT-BID 11/02/17 11/06/17 History [Symbicort 160-4.5 Mcg Inhaler] Cholecalciferol [Vitamin D3] 1,000 unit PO DAILY 11/02/17 11/06/17 History Furosemide [Lasix] 20 mg PO AC-BID 11/02/17 11/06/17 History Ipratropium Nebulized [Atrovent 0.5 mg INHALATION RT-Q4H PRN 11/02/17 11/06/17 History Nebulized] Multivitamins, Thera [Multivitamin 1 tab PO DAILY 11/02/17 11/06/17 History (formulary)] Allergies Allergy/AdvReac Type Severity Reaction Status Date / Time No Known Allergies Allergy Verified 11/06/17 13:28 Physical Exam Vitals: Intake and Output 11/05/17 11/06/17 11/06/17 22:59 06:59 14:59 Other: # Bowel Movements 0 Weight 104.32 kg Patient Weight 11/07/17 06:59 Weight 104.32 kg Patient is comfortable on IV morphine Assessment and Plan Plan: Assessment and Plan Plan: Acute hypoxic and hypercapnic respiratory failure secondary to severe end-stage COPD, emphysema. History of DVT Hypertension Hyperlipidemia coronary artery disease with previous history of NE and multiple stents Obesity Poor functional status CODE STATUS. Inpatient hospice Plan: Patient is presently general inpatient hospice and is on IV morphine
[2017-11-06] MEDS ORDERED: BISACODYL 10 MG SUPP RECTAL PRN (14:51)
[2017-11-06] MEDS ORDERED: LORazepam 2 MG/ML INJ IV PRN (14:51)
[2017-11-06] MEDS ORDERED: ACETAMINOPHEN SUPPOSITORY 650 MG SUPP RECTAL PRN (14:51)
[2017-11-06] MEDS ORDERED: ONDANSETRON 4 MG/2 ML VIAL IVP PRN (14:51)
[2017-11-06] MEDS ORDERED: ATROPINE OPHTH SOLN 1% 5ML BTL SUBLINGUAL PRN (14:51)
[2017-11-06] MEDS ORDERED: SCOPOLAMINE 1.5MG/72HR PATCH TRANSDERM SCH (15:00)
[2017-11-06] MEDS ORDERED: MORPHINE SULFATE (100 MG/2 ML) 100 MG in SODIUM CHLORIDE 0.9% 100 ML IV SCH (15:00)
== END 2017-11-07 01:44 | disposition expired | DRG 951 ==
LOC: 5ONC 13:01
PROVIDERS: ADMIT Hospitalist; ATTEND Hospitalist
DX: Z51.5 Encounter for palliative care (principal); J96.01 Acute respiratory failure with hypoxia; J96.02 Acute respiratory failure with hypercapnia; Z66 Do not resuscitate; J43.9 Emphysema, unspecified; E78.5 Hyperlipidemia, unspecified; I25.10 Atherosclerotic heart disease of native coronary artery without angina pectoris; I25.2 Old myocardial infarction; I11.0 Hypertensive heart disease with heart failure; I50.9 Heart failure, unspecified; G40.909 Epilepsy, unspecified, not intractable, without status epilepticus; Z79.51 Long term (current) use of inhaled steroids; Z79.899 Other long term (current) drug therapy; Z79.82 Long term (current) use of aspirin; Z95.5 Presence of coronary angioplasty implant and graft; Z86.718 Personal history of other venous thrombosis and embolism; Z87.891 Personal history of nicotine dependence